=== PATIENT | male | born 1960 | race Caucasian/White ===

== ENCOUNTER → 2019-06-18 | Outpatient (CLI) | payer BC ==
[~2019-06-18] MED LIST: 0.9 % SODIUM CHLORIDE 10 ML DISP.SYRIN. ID ONE; GADOTERATE 5 MMOL/10ML VIAL. INT ART ONE; IOHEXOL 300 MG/ML 50 ML VIAL. INT ART ONE; LIDOCAINE 1% Multi-Dose 20 ML VIAL. ID ONE
--- NOTE | 2019-06-18 15:51 | KCIC ---
MRI arthrogram of the left shoulder HISTORY: Impingement syndrome. Prior surgery 2 years ago. Pain for 1.5-2 months. TECHNIQUE: Routine multiplanar sequences are obtained. FINDINGS: There is mild motion degradation. Acromioclavicular joint is mildly degenerative with small undersurface osteophytes. Full-thickness rupture of the supraspinatus tendon anteriorly, measuring about 2.5 cm AP diameter with 3 cm retraction. Tearing of the more posterior rotator cuff. Partial subscapularis tendon tear. No advanced rotator cuff muscle atrophy. Mild contrast accumulation in the subdeltoid bursa through the rotator cuff defect. Mild motion degradation. No evidence of labral tear or para labral cyst. Small tear of the superior labrum. Biceps tendinosis. The tendon is subluxed medially, perched over the lesser tuberosity. No acute fracture. No bone destruction. No acute soft tissue abnormality. IMPRESSION: 1. Moderate full-thickness rotator cuff tear of the supraspinatus tendon with retraction. Partial tearing of the remaining rotator cuff. 2. Superior labral tear. 3. Biceps tendinosis with medial subluxation. Electronically signed by: Jj Kim MD (06/18/2019 3:48 PM) [id number]
--- NOTE | 2019-06-18 15:52 | KCIC ---
PROCEDURE: Left shoulder injection using fluoroscopic guidance, prior to MR. HISTORY: Shoulder pain. TECHNIQUE: The procedure was explained to the patient as were potential risks, including among others infection, bleeding or allergic reaction. All questions were answered. Informed written and verbal consent was obtained. The shoulder was prepped and draped in the usual sterile manner. Following administration of local anesthetic, a 22-gauge needle was advanced into the anterior shoulder. Following negative aspiration, 12 cc of a solution of 5cc Omnipaque-300 contrast, 5 cc 1% lidocaine, 10 cc normal saline, and 0.1 cc gadolinium was injected without difficulty. The needle was removed. There was good hemostasis at the injection site. The patient left in stable condition without immediate complication. A single spot image is obtained. FLUOROSCOPY TIME:?47 seconds Electronically signed by: Jj Kim MD (06/18/2019 3:50 PM) [id number]
== END ==
LOC: KCIC 12:11
PROVIDERS: ATTEND Orthopaedic Surgery
DX: M75.42 Impingement syndrome of left shoulder (principal)
CPT/HCPCS: 23350; 73222; 77002; A9575; Q9967; 73040